=== PATIENT | male | born 1950 ===

== ENCOUNTER 2020-08-30 09:35 | Observation (INO) ==
--- NOTE | 2020-08-21 14:42 | PAT Medication Instructions ---
Medication Instructions Date of Service August 21, 2020 Home Medications Medication Instructions Recorded oxcarbazepine 150 mg tablet 150 mg PO BID #60 tab 09/06/19 finasteride 5 mg tablet 5 mg PO DAILY #90 tab 12/01/19 aspirin 81 mg tablet,delayed release 81 mg PO QAM cholecalciferol (vitamin D3) 10 mcg (400 unit) capsule 400 units PO QAM folic acid 800 mcg tablet 0.8 mg PO QAM simvastatin 20 mg tablet 20 mg PO QAM tramadol 50 mg tablet 50 mg PO TID PRN oxcarbazepine 150 mg tablet 150 mg PO BID finasteride 5 mg tablet 5 mg PO DAILY carvedilol 3.125 mg tablet 3.125 mg PO BID dexlansoprazole 60 mg capsule,biphase delayed release 60 mg PO QAM ranolazine 500 mg tablet,extended release,12 hr 500 mg PO QAM tamsulosin 0.4 mg capsule 0.4 mg PO QAM atorvastatin 20 mg PO QAM simethicone 40 mg PO QID sucralfate 1 g PO BID ASK your prescriber and surgeon aspirin 81 mg tablet,delayed release 81 mg PO QAM DO NOT take the morning of surgery cholecalciferol (vitamin D3) 10 mcg (400 unit) capsule 400 units PO QAM folic acid 800 mcg tablet 0.8 mg PO QAM simethicone 40 mg PO QID sucralfate 1 g PO BID Take morning of surgery With a small sip of water, OTHERWISE NOTHING TO EAT OR DRINK AFTER MIDNIGHT: simvastatin 20 mg tablet 20 mg PO QAM tramadol 50 mg tablet 50 mg PO TID PRN (okay to take up to 4 hours prior to surgery if needed) oxcarbazepine 150 mg tablet 150 mg PO BID finasteride 5 mg tablet 5 mg PO DAILY carvedilol 3.125 mg tablet 3.125 mg PO BID dexlansoprazole 60 mg capsule,biphase delayed release 60 mg PO QAM ranolazine 500 mg tablet,extended release,12 hr 500 mg PO QAM tamsulosin 0.4 mg capsule 0.4 mg PO QAM atorvastatin 20 mg PO QAM Take evening before surgery tramadol 50 mg tablet 50 mg PO TID PRN (if needed) oxcarbazepine 150 mg tablet 150 mg PO BID carvedilol 3.125 mg tablet 3.125 mg PO BID simethicone 40 mg PO QID sucralfate 1 g PO BID Other Notes If you have any questions please call us at [phone] or [phone] or [phone] or [phone]
--- NOTE | 2020-08-24 09:06 | Anesthesiology Consultation ---
Date of Service August 24, 2020 Assessment & Plan (1) Encounter for pre-operative examination: - Per assessment on 08/24: Travel screen negative. No known COVID-19 positive contacts or current COVID-19 related symptoms. Surgeon arranged preop COVID test (being done 08/24 at [facility])- awaiting results. - ASA instructions: per surgeon/prescriber Chart Review Chart Review: Acceptable Risk for Surgery (pending most recent banquet prep cook office visit note) and Patient seen in Pre Admission Testing Teaching & Discussion Pre-Anesthesia Teaching/Discussion Notes: Instructed NPO after midnight before surgery,except medications with 15 cc of water. Medication instructions provided according to the [facility] guidelines. History Surgery Operation Date: 08/30/20 11:45 Proposed Procedures p Transurethral Resection Prostate - Krystian Cho MD Height/Weight Height: 5 ft 10 in Weight: 93.9 kg Allergies Allergy/AdvReac Type Severity Reaction Status Date / Time naproxen Allergy Intermediate Mood Verified 08/24/20 09:02 changes Medications Home Medications Medication Instructions Recorded Confirmed Last Taken aspirin 81 mg tablet,delayed 81 mg PO QAM 08/15/19 08/21/20 Unknown release cholecalciferol (vitamin D3) 10 400 units PO QAM 08/15/19 08/21/20 Unknown mcg (400 unit) capsule folic acid 800 mcg tablet 0.8 mg PO QAM 08/15/19 08/21/20 Unknown simvastatin 20 mg tablet 20 mg PO QAM 08/15/19 08/21/20 Unknown tramadol 50 mg tablet 50 mg PO TID PRN 08/15/19 08/21/20 Unknown oxcarbazepine 150 mg tablet 150 mg PO BID #60 tab 09/06/19 08/21/20 Unknown finasteride 5 mg tablet 5 mg PO DAILY #90 tab 12/01/19 08/21/20 Unknown carvedilol 3.125 mg tablet 3.125 mg PO BID 08/13/20 08/21/20 Unknown dexlansoprazole 60 mg 60 mg PO QAM 08/13/20 08/21/20 Unknown capsule,biphase delayed release ranolazine 500 mg tablet,extended 500 mg PO QAM tab 08/13/20 08/21/20 Unknown release,12 hr tamsulosin 0.4 mg capsule 0.4 mg PO QAM 08/13/20 08/21/20 Unknown atorvastatin 20 mg PO QAM 08/21/20 08/21/20 Unknown simethicone 40 mg PO QID 08/21/20 08/21/20 Unknown sucralfate 1 g PO BID 08/21/20 08/21/20 Unknown Past Medical History Medical History Arthritis BPH (benign prostatic hyperplasia) Chronic kidney disease, stage 2 (mild) Coronary artery disease non-obstructive, follows with Dr. eTllez GERD (gastroesophageal reflux disease) stable Hearing deficit Hx of pancreatitis Hypercholesterolemia Hyperlipidemia Hypertension Lumbar degenerative disc disease Exercise / Class Metabolic Activity II 4-5 Yardwork/Stairs/Walk up hill Past Family History Family History Sister Diabetes Coronary heart disease Family history of diabetes mellitus Brother Family history of diabetes mellitus Other No family history of adverse response to anesthesia Past Surgical History Surgical History H/O cardiac catheterization 5 years ago > no stents History of appendectomy History of carpal tunnel release Right History of cholecystectomy History of colonoscopy History of esophagogastroduodenoscopy (EGD) History of herniorrhaphy Left inguinal History of tooth extraction History of total knee replacement Right Past Anesthesia History No Hx of Anesthesia Complications and No Family Hx of Anesthesia Complications History of PONV No Hx of PONV and No Hx of Motion Sickness Social History Smoking Status: Former smoker tobacco type: cigarettes and smokeless tobacco Do You Dip or Chew Tobacco: No (QUIT 40 YEARS AGO) Smoking End Date: Quit 40 years ago (hx tobacco use x 10 years) Hx Alcohol Use: Yes Alcohol type: wine alcohol intake frequency: a few times a month substance use type: does not use Review of Systems Patient denies chest pain, shortness of breath, dyspnea on exertion, fever, chills, cough, wheezing, palpitations. Physical Exam Vital Signs VITALS BP 108/72 P 86 TEMP 98.1 SP02 96%RA RESP 16 PHYSICAL Full neck and c-spine range of motion. Full TMJ range of motion. TMD 3 finger breaths Mallampati Score 3 Dentition: upper partial plate Lungs: clear throughout to auscultation Cardiac: regular rate and rhythm, no murmurs noted Spine: normal Carotid arteries: negative bruit Extremities: no edema Testing Laboratory Results 08/24/20 09:21 08/24/20 09:21 08/13/20 UA negative URINE CULTURE no growth Electrocardiogram Date: 08/24/20 SR with marked sinus arrhythmia at 71bpm. Low voltage QRS. Chest X-Ray Date: 08/24/20 FINDINGS: There is moderate elevation of the left hemidiaphragm. Linear left basilar opacity suggests atelectasis. There is no consolidation to suggest pneumonia and there is no evidence for pulmonary edema. Cardiac size is normal. IMPRESSION: No acute cardiopulmonary findings. Moderate elevation of the left hemidiaphragm with left basilar opacity suggestive of atelectasis.
--- NOTE | 2020-08-24 09:55 | XRay Report ---
XR chest Pre-admission PA/Lat CLINICAL HISTORY: Preoperative evaluation. COMPARISON STUDY: No previous studies for comparison. FINDINGS: There is moderate elevation of the left hemidiaphragm. Linear left basilar opacity suggests atelectasis. There is no consolidation to suggest pneumonia and there is no evidence for pulmonary e byron. Cardiac size is normal. IMPRESSION: 1. No acute cardiopulmonary findings. 2. Moderate elevation of the left hemidiaphragm with left basilar opacity suggestive of atelectasis. ACT 112: Negative or not required by law. Electronically signed by: Otoniel Calle M.D. 08/24/2020 9:54 AM
[2020-08-24 10:26] LABS: Basophils # (auto) 0.02 K/uL (0-0.2); Basophils % (auto) 0.3 %; Eosinophils # (auto) 0.17 K/uL (0-0.5); Eosinophils % (auto) 2.8 %; Hematocrit (blood only) 43.5 % (42-52); Hemoglobin 14.6 g/dL (14.0-18.0); Immature Granulocytes # (auto) 0.01 K/uL (0.00-0.02); Immature Granulocytes % (auto) 0.2 %; Lymphocytes # (auto) 1.39 K/uL (1.2-3.4); Mean Corpuscular Hemoglobin 33.1 pg (25-34); Mean Corpuscular Hgb Conc 33.6 g/dL (32-36); Mean Corpuscular Volume 98.6 fL (80-100); Mean Platelet Volume 10.2 fL (7.4-10.4); Monocytes # (auto) 0.67 K/uL (0.11-0.59); Monocytes % (auto) 11.1 %; Neutrophils # (auto) 3.78 K/uL (1.4-6.5); Neutrophils % (auto) 62.6 %; Platelet Count 166 K/uL (130-400); RDW Coefficient of Variation 12.5 % (11.5-14.5); Red Blood Count 4.41 M/uL (4.7-6.1); White Blood Count 6.04 K/uL (4.8-10.8)
[2020-08-24 10:32] LABS: BUN Creatinine Ratio 14.2 (10-20); Calcium 9.1 mg/dl (8.5-10.1); Creatinine Clr Calc Pharmacy 56.9 ml/min; Est GFR (African American) 60.4; Est GFR (Non-African American) 52.1; Potassium 4.3 mmol/L (3.5-5.1)
--- NOTE | 2020-08-25 05:13 | Electrocardiogram Report ---
Test Reason : Blood Pressure : / mmHG Vent. Rate : 071 BPM Atrial Rate : 071 BPM P-R Int : 146 ms QRS Dur : 084 ms QT Int : 382 ms P-R-T Axes : 077 001 045 degrees QTc Int : 415 ms Sinus rhythm with marked sinus arrhythmia Low voltage QRS Borderline ECG No previous ECGs available Confirmed by Luc Montana ([id number]) on 08/25/2020 5:13:19 AM Referred By: Krystian Cho Confirmed By:Luc Montana
[~2020-08-30 09:35] MED LIST: CIPROFLOXACIN / D5W 400 MG/200 ML BAG IV SCH; LR 15ML/HR IV SCH
[2020-08-30] MEDS ORDERED: MIDAZOLAM HCL 1 MG/ML 2ML VIAL ONE (09:48)
[2020-08-30] MEDS ORDERED: LIDOCAINE 2% 2 ML VIAL/AMP(20MG/ML) INFIL ONE (09:48)
[2020-08-30] MEDS ORDERED: PROPOFOL IV EMULSION 10 MG/ML 20 ML VIAL IV ONE (09:48)
[2020-08-30] MEDS ORDERED: ePHEDrine sulfate 50 MG/ML SYR ONE (09:48)
[2020-08-30] MEDS ORDERED: PHENYLEPHRINE 100MCG/ML 5ML SYR ONE (09:48)
[2020-08-30] MEDS ORDERED: fentaNYL citrate 100 MCG/2 ML VIAL ONE (09:48)
[2020-08-30] MEDS ORDERED: ONDANSETRON INJ 2 MG/ML 2 ML VIAL ONE (09:48)
[2020-08-30] MEDS ORDERED: fentaNYL citrate 100 MCG/2 ML VIAL IV PRN (10:23)
[2020-08-30] MEDS ORDERED: LABETALOL HCL IV 5 MG/ML 20ML IV PRN (10:23)
[2020-08-30] MEDS ORDERED: ATROPINE SULFATE 0.1 MG/ML 10ML SYR IV PRN (10:23)
[2020-08-30] MEDS ORDERED: ONDANSETRON INJ 2 MG/ML 2 ML VIAL IV PRN ×2 (10:23→13:01)
[2020-08-30] MEDS ORDERED: ePHEDrine sulfate 50 MG/ML AMP IV PRN (10:23)
[2020-08-30] MEDS ORDERED: PHENYLEPHRINE 100MCG/ML 5ML SYR IV PRN (10:23)
[2020-08-30] MEDS ORDERED: HYDROmorphone INJ 1 MG/ML SYRINGE IV PRN (10:23)
[2020-08-30] MEDS ORDERED: MEPERIDINE HCL 25 MG/ML CARP/VIAL IV PRN (10:23)
--- NOTE | 2020-08-30 10:40 | History & Physical Bridge Note ---
Date of Service August 30, 2020 History & Physical Bridge Note I have examined the patient, reviewed the History & Physical and in the interval since the performance of the History & Physical I have noted the following changes of clinical significance: no changes noted
--- NOTE | 2020-08-30 12:00 | Operative Report ---
PG Post Operative Report Pre & Post Diagnosis Operation Date: 08/30/20 11:10 Pre-Op Diagnosis: Benign Prostatic Hyperplasia Post-Op Diagnosis: Benign Prostatic Hyperplasia I identified the patient and participated in the time-out.: Yes Procedure Operation Date: 08/30/20 11:10 Actual Procedures p Transurethral Resection Prostate(Not Applicable) - Krystian Cho MD Surgeon Wesley Cho MD Immigration Judge none Estimated Blood Loss 5 Findings Consistent with Post-Op Diagnosis Specimens None Description of Procedure The patient was identified in the preoperative holding area, appropriate informed consents were reviewed and completed and the patient was transferred to the operative suite. Upon arrival, appropriate antibiotics and anesthesia were administered and the patient was placed in dorsal lithotomy position and prepped and draped in sterile fashion. To begin the case I passed a 27 [place] resectoscope with 30 degree lens and visual obturator. Inspection revealed healthy appearing urethra. His prostate is notably enlarged with some lateral lobe hypertrophy, a high bladder neck and small intravesical median bar. Bladder was inspected, moderate trabeculation, UOs in orthotopic position. No other abnormalities appreciated. Following my inspection I exchanged the visual capsule filling machine operator for resecting element using a button electrode. I incised the bladder neck at 5 and 7:00. I then resected and flatten the area between the 2 incisions. This drastically improved the appearance of his prostatic urethra. I did proceed to resect the left and right lateral lobes followed by the apical tissue. At the conclusion of the resection hemostasis was excellent, the bladder neck was widely patent, the prostatic fossa was widely patent. A 22 [place] Romo catheter was inserted without difficulty and the case concluded. He was extubated and taken to the PACU in stable condition. There were no complications. I attest to the content of the Intraoperative Record and any orders documented therein. Any exceptions are noted below.
--- NOTE | 2020-08-30 12:16 | Anesthesiology Progress Note ---
Date of Service August 30, 2020 Anesthesia Post Procedure Vital Signs Vital Signs: Temp Pulse Pulse Resp BP BP Pulse Ox 08/30/20 12:10 76 18 101/67 95 08/30/20 12:00 78 17 105/67 95 08/30/20 11:50 36.1 C L 80 14 88/58 L 97 08/30/20 10:09 36.9 C 90 20 130/71 96 Transfer of Care Handoff Completed per policy Notes Mental Status: alert / awake / arousable Patient Amnestic to Procedure: Yes Nausea / Vomiting: adequately controlled Pain: adequately controlled Airway Patency, RR, SpO2: stable & adequate BP & HR: stable & adequate Hydration State: stable & adequate Anesthetic Complications: no major complications apparent and Pt Satisfied with anesthetic care
[2020-08-30] MEDS ORDERED: traMADol HCL 50 MG TABLET PO PRN (13:01)
[2020-08-30] MEDS: LACTATED RINGER'S 1,000 ML IV SCH ×2 (14:47→20:26)
[2020-08-30] MEDS: SIMETHICONE 80 MG CHEW PO SCH ×2 (17:05→20:58)
[2020-08-30] MEDS: carvediloL 3.125 MG TAB PO SCH (20:58)
[2020-08-30] MEDS: OXcarbazepine 150 MG TABLET PO SCH (20:58)
[2020-08-30] MEDS: SUCRALFATE 1 GM TAB PO SCH (20:58)
[2020-08-30] MEDS ORDERED: CIPROFLOXACIN / D5W 400 MG/200 ML BAG IV SCH (22:00)
[2020-08-31] MEDS: LACTATED RINGER'S 1,000 ML IV SCH (06:03)
[2020-08-31 07:02] LABS: Basophils # (auto) 0.02 K/uL (0-0.2); Basophils % (auto) 0.3 %; Eosinophils # (auto) 0.15 K/uL (0-0.5); Eosinophils % (auto) 2.1 %; Hematocrit (blood only) 39.7 % (42-52); Hemoglobin 13.5 g/dL (14.0-18.0); Immature Granulocytes # (auto) 0.02 K/uL (0.00-0.02); Immature Granulocytes % (auto) 0.3 %; Lymphocytes # (auto) 1.27 K/uL (1.2-3.4); Lymphocytes % (auto) 17.8 %; Mean Corpuscular Hemoglobin 33.3 pg (25-34); Mean Platelet Volume 10.2 fL (7.4-10.4); Monocytes # (auto) 0.73 K/uL (0.11-0.59); Monocytes % (auto) 10.2 %; Neutrophils # (auto) 4.96 K/uL (1.4-6.5); Neutrophils % (auto) 69.3 %; Platelet Count 134 K/uL (130-400); RDW Coefficient of Variation 12.4 % (11.5-14.5); RDW Standard Deviation 44.9 fL (36.4-46.3); Red Blood Count 4.05 M/uL (4.7-6.1); White Blood Count 7.15 K/uL (4.8-10.8)
[2020-08-31 07:37] LABS: BUN Creatinine Ratio 13.8 (10-20); Calcium 8.4 mg/dl (8.5-10.1); Creatinine Clr Calc Pharmacy 53.7 ml/min; Est GFR (African American) 56.8; Potassium 4.3 mmol/L (3.5-5.1)
--- NOTE | 2020-08-31 08:08 | Urology Progress Note ---
Date of Service August 31, 2020 Assessment & Plan (1) Benign localized prostatic hyperplasia with lower urinary tract symptoms (LUTS): Voiding after his TURP yesterday Plan for discharge home today Admission and Anticipated Discharge Date Admission Date: August 30, 2020 Subjective No issues overnight Tolerated the catheter well Catheter was removed by nurse driven protocol at 6 AM todayhe has voided twice since that timeno significant discomfortanxious to go home Physical Exam Constitutional: well developed and well nourished Respiratory: no respiratory distress Cardiovascular: Extremities: no pedal edema Gastrointestinal (Abdomen): Inspection/Auscultation: abdomen normal to inspection Results & Data ([facility]) Vital Signs (Past 12 Hours) Vital Signs Temp Pulse Resp BP Pulse Ox 08/31/20 06:56 36.8 C 83 18 114/77 94 08/31/20 03:17 36.8 C 83 18 116/67 95 08/30/20 22:33 36.9 C 75 16 118/75 94 08/30/20 20:55 122/75 PG Care Time/CCT Total # of Minutes Spent Total Time Spent with Patient: Total time spent is greater than 50% in coordination of care (as documented) at patient's floor/unit and/or counseling patient: Coding Level of Care Code 44990 Subseq Obs Care Lvl 1 Diagnoses Benign localized prostatic hyperplasia with lower urinary tract symptoms (LUTS) N40.1
[2020-08-31] MEDS ORDERED: ATORVASTATIN 20 MG TAB PO SCH (09:00)
[2020-08-31] MEDS ORDERED: SIMVASTATIN 20 MG TAB PO SCH (09:00)
[2020-08-31] MEDS ORDERED: CHOLECALCIFEROL 400 UNITS 10 MCG TAB PO SCH (09:00)
[2020-08-31] MEDS ORDERED: RANOLAZINE 500 MG ER TAB PO SCH (09:00)
[2020-08-31] MEDS ORDERED: PANTOprazole 40 MG TAB PO SCH (09:00)
[2020-08-31] MEDS: SIMETHICONE 80 MG CHEW PO SCH (09:04)
[2020-08-31] MEDS: SUCRALFATE 1 GM TAB PO SCH (09:04)
[2020-08-31] MEDS: carvediloL 3.125 MG TAB PO SCH (09:04)
[2020-08-31] MEDS: OXcarbazepine 150 MG TABLET PO SCH (09:05)
--- NOTE | 2020-08-31 11:32 | Discharge Summary ---
Date of Service August 31, 2020 Admission HPI Per Admitting Provider See H&P Admission Exam Per Admitting Provider See H&P Principal Diagnosis Benign Prostatic Hyperplasia Discharge Exam Constitutional well developed and well nourished; no acute distress and not ill appearing Respiratory normal respiratory effort and able to speak in complete sentences; no respiratory distress and no audible wheezes Gastrointestinal (Abdomen) Inspection/Auscultation: abdomen normal to inspection; abdomen not distended Skin No visible rashes, lesions, or wounds. Psychiatric Orientation: alert, oriented x 3 and cooperative Affect: euthymic affect Discharge Data Allergies Allergy/AdvReac Type Severity Reaction Status Date / Time naproxen Allergy Intermediate Mood Verified 08/30/20 10:03 changes Procedures Performed Operation Date: 08/30/20 11:10 Actual Procedures p Transurethral Resection Prostate(Not Applicable) - Krystian Cho MD Hospital Course (1) Benign localized prostatic hyperplasia with lower urinary tract symptoms (LUTS): Patient admitted status post transurethral resection of prostate. No complications post procedure. He was seen POD#1, feeling well, clinically progressing. Vital signs and post-op labs appropriate and as expected. Pain controlled, tolerated diet, and ambulating without dizziness. Catheter removed in AM POD#1, voided spontaneously without issues. Discharged home in stable condition on POD#1. Total Time Total Time Spent Total Time Spent (In Minutes): 10 Discharge Plan Discharge Items Patient Disposition: Home - Self-Care Reason For Visit: Bengin Prostatic Hyperplasia Discharge Diagnosis: Benign Prostatic Hyperplasia Activity: Per Instructions section Lifting: No more than 10 pounds Bathing Comment: No tub baths or soaking. Okay to shower tonight. Sexual Activity: Wait until after follow-up appointment Exercise/Sports: Wait until after follow-up appointment Driving/Machine Use: Do not drive while taking narcotic pain medication Non-emergency contact: Surgeon and Urologist Call non-emergency contact if: your pain is not controlled and your temperature is above 101 Follow-up/Referrals: Krystian Cho MD [Physician] - 09/12/20 1:00 pm Calderon Schaffer [Primary Care Provider] - Diet: Regular Addtl Attending Provider Instructions: Please take all medications as prescribed and keep all follow-ups as scheduled. Please call our office at [phone] with any questions, concerns or need to reschedule appointments for any reason. We are happy to assist you. Your home medication list indicates you are on both Atorvastatin and Simvastatin. Please discuss with your marina porter or PCP upon discharge regarding dual statin therapy. Your most recent cardiology note in your chart indicates only use of Atorvastatin. You may resume your Aspirin on Thursday09/03/20. Please hold this medication until that date. Tips for your recovery at home: Dont be alarmed by brownish or reddish blood or clots in your urine. This is a result of the procedure. This may occur off and on for weeks to months after the procedure but should continue to improve. Drink plenty of fluids during the day (enough to keep your urine very light colored). This will help keep a healthy flow of urine. Do not lift >25 lbs until your followup Avoid constipation. Please use a stool softener (Colace) for the first two weeks after your procedure Be sure to finish the antibiotics as prescribed. If you go home with a catheter, please wash tubing where it enters your body twice daily with mild soap (Dove or Dial). Once your catheter is removed, expect some blood in your urine and some burning when you urinate. You should have an appointment to have this removed, if you do not please call our office to arrange. When to call [facility] at [phone]: Your urine contains heavy blood clots You are constantly leaking urine Fever of 101F or higher, chills, nausea, or vomiting Your pain is not relieved with medication Pending Studies at Discharge: Yes Studies:: Pathology Stand-Alone Forms: [facility], Smoking Cessation Medications and DC Order Prescriptions: Continued oxcarbazepine [Trileptal] 150 mg tablet 150 mg PO BID Qty: 60 RF: 5 carvedilol 3.125 mg tablet 3.125 mg PO BID RF: 0 Dexilant 60 mg capsule,biphase delayed releas 60 mg PO QAM RF: 0 tramadol 50 mg tablet 50 mg PO TID PRN (Reason: Pain) RF: 0 folic acid 800 mcg tablet 0.8 mg PO QAM RF: 0 cholecalciferol (vitamin D3) 400 unit capsule 400 units PO QAM RF: 0 ranolazine 500 mg tablet extended release 12 hr 500 mg PO QAM RF: 0 atorvastatin 20 mg Tablet 20 mg PO QAM RF: 0 sucralfate 1 gram Tablet 1 g PO BID RF: 0 simethicone 40 mg Tablet,Chewable 40 mg PO QID RF: 0 aspirin 81 mg tablet,delayed release (DR/EC) 81 mg PO QAM Qty: 0 RF: 0 simvastatin 20 mg tablet 20 mg PO QAM Qty: 0 RF: 0 Discontinued tamsulosin 0.4 mg capsule 0.4 mg PO QAM RF: 0 finasteride 5 mg tablet 5 mg PO DAILY Qty: 90 RF: 3 Discharge Orders: Discharge Order (Routine); Ordered 08/31/20 Ordered By: Mirian Piña/Other Patient Handouts: Prostate Anatomy, Benign Prostatic Hyperplasia Admission Data Admit Date/Time: 08/30/20 12:03 Attending Provider: Krystian Cho Admit Provider: Krystian Cho Primary Care Provider: Calderon Schaffer Other Interventions: Discharge Summary Assessment (RN) Last Done: 08/31/20 09:06 Coding Level of Care Code D/C Day Management <30 mins Diagnoses Benign localized prostatic hyperplasia with lower urinary tract symptoms (LUTS) N40.1
== END 2020-08-31 09:42 | disposition home or self-care (01) ==
LOC: ASU 09:35 → 3W 09:35